=== PATIENT | male | born 1995 | race Caucasian/White ===

== ENCOUNTER 2019-05-08 17:06 | Emergency (ER) | payer SELFPAY | END 2019-05-08 19:50 | disposition left against medical advice (07) | LOC: ER 17:06 | DX: Z53.21 Procedure and treatment not carried out due to patient leaving prior to being seen by health care provider (principal) ==

== ENCOUNTER 2020-07-13 04:00 | Emergency (ER) | payer OTHER ==
[2020-07-13] MEDS ORDERED: LORAZEPAM INJ 2 MG/1 ML VIAL IV ONE (06:27)
[2020-07-13] MEDS ORDERED: MORPHINE SULFATE 10 MG/ML INJ IV ONE ×2 (06:27→08:49)
[2020-07-13] MEDS ORDERED: NORMAL SALINE 1000 ML 1,000 ML IV ONE (06:28)
[2020-07-13] MEDS ORDERED: KETOROLAC TROMETHAMINE INJ/PF 30 MG/1 ML SDV IV ONE (06:28)
--- NOTE | 2020-07-13 08:15 | RADIOLOGY REPORT (SQ) ---
EXAM DESCRIPTION: CT LUMBAR SPINE WITHOUT IMAGES COMPLETED DATE/TIME: 07/13/2020 7:49 am REASON FOR STUDY: heavy lifting yesterday/pain in lowback/pelvis COMPARISON: None. TECHNIQUE: Axial images acquired through the lumbar spine without intravenous contrast. Images revi ewed with lung, soft tissue and bone windows. Reconstructed coronal and sagittal MPR images reviewed . All images stored on PACS. All CT scanners at this facility use dose modulation, iterative reconstruction, and/or weight based d osing when appropriate to reduce radiation dose to as low as reasonably achievable (ALARA). [facility]: Dose Right [facility]: CareDose [facility]: Dose Right [facility]: Teradose 4D [facility]: [address] RADIATION DOSE: mGy. LIMITATIONS: None. FINDINGS: SEGMENTATION: Normal. No transitional anatomy. ALIGNMENT: Normal. VERTEBRAL BODIES: No fractures. No dislocation. No acute findings. DISCS: No significant protrusions. Study limited by lack of intrathecal contrast. PEDICLES, TRANSVERSE PROCESSES: No fractures. No dislocation. No acute findings. FACETS, POSTERIOR ELEMENTS: No fractures. No dislocation. No spinal stenosis. HARDWARE: None in the spine. VISUALIZED RIBS: No fractures. SOFT TISSUES: No significant or acute finding in adjacent soft tissues. OTHER: No other significant finding. IMPRESSION: NORMAL CT OF THE LUMBAR SPINE. TECHNICAL DOCUMENTATION: JOB ID: [id number] Quality ID # [id number]: Final reports with documentation of one or more dose reduction techniques (e.g., Au tomated exposure control, adjustment of the mA and/or kV according to patient size, use of iterative reconstruction technique) 2010 [employer]- All Rights Reserved Reading location - IP/workstation name: [email or web address]
--- NOTE | 2020-07-13 08:19 | RADIOLOGY REPORT (SQ) ---
EXAM DESCRIPTION: CT PELVIS WITHOUT IMAGES COMPLETED DATE/TIME: 07/13/2020 7:48 am REASON FOR STUDY: heavy lifting yesterday/pain in lowback/pelvis COMPARISON: None. TECHNIQUE: CT scan of the pelvis performed without intravenous or oral contrast. Images reviewed wi th soft tissue and bone windows. Reconstructed coronal and sagittal MPR images reviewed. All images stored on PACS. All CT scanners at this facility use dose modulation, iterative reconstruction, and/or weight based d osing when appropriate to reduce radiation dose to as low as reasonably achievable (ALARA). [facility]: Dose Right [facility]: CareDose [facility]: Dose Right [facility]: Teradose 4D [facility]: [place] RADIATION DOSE: CT Rad equipment meets quality standard of care and radiation dose reduction techniq ues were employed. CTDIvol: NaN mGy. DLP: 0 mGy-cm. mGy. LIMITATIONS: None. FINDINGS: PELVIC BONES: No acute fracture. No worrisome bone lesions. VISUALIZED SPINE: No acute findings. HIP(S): No acute fracture or dislocation. No worrisome bone lesions. PELVIC SOFT TISSUES: No significant findings. EXTRAPELVIC SOFT TISSUES: No significant findings. OTHER: No other significant finding. IMPRESSION: NO ACUTE OR SIGNIFICANT FINDINGS. TECHNICAL DOCUMENTATION: JOB ID: [id number] Quality ID # [id number]: Final reports with documentation of one or more dose reduction techniques (e.g., Au tomated exposure control, adjustment of the mA and/or kV according to patient size, use of iterative reconstruction technique) 2010 [employer]- All Rights Reserved Reading location - IP/workstation name: [email or web address]
--- NOTE | 2020-07-13 09:51 | ER Document Report ---
Entered by RAFFY LOZANO SCRIBE 07/13/20 0632 Acting as scribe for:KEANU ALCOCER MD ED Neck/Back Problem - General Chief Complaint: Low Back Pain Stated Complaint: LOWER BACK INJURY Mode of Arrival: Ambulatory Information source: Patient Notes: This 25 year old male patient presents to the ED today with complaints of left lower back pain that started around 1900 yesterday evening at the gym. Patient states that he was doing heavy back squats with 470 lbs of weight and when he went down in the squat position, he hyperextended his back and threw the weight down. Denies fall or trauma. He notes that the pain is exacerbated by any movements and that he can stand, but it hurts to ambulate. He mentions taking 1000 mg Ibuprofen last night without relief. Denies any change in urinary habits. - Related Data Allergies/Adverse Reactions: No Known Allergies Allergy (Verified 05/08/19 17:07) Past Medical History - General Information source: Patient - Social History Smoking Status: Never Smoker Cigarette use (# per day): No Chew tobacco use (# tins/day): No Smoking Education Provided: No Frequency of alcohol use: None Drug Abuse: None Lives with: Spouse/Significant other Family History: Reviewed & Not Pertinent Patient has suicidal ideation: No Patient has homicidal ideation: No Past Surgical History: Reports: Hx Oral Surgery, Hx Orthopedic Surgery - Right wrist Review of Systems - Review of Systems Constitutional: No symptoms reported EENT: No symptoms reported Cardiovascular: No symptoms reported Respiratory: No symptoms reported Gastrointestinal: No symptoms reported Genitourinary: See HPI. denies: Pain Male Genitourinary: No symptoms reported Musculoskeletal: See HPI, Back pain Skin: No symptoms reported Hematologic/Lymphatic: No symptoms reported Neurological/Psychological: No symptoms reported Physical Exam - Vital signs Vitals: Temp Pulse Resp BP Pulse Ox 98.3 F 65 20 128/71 H 100 07/13/20 04:05 07/13/20 04:05 07/13/20 04:05 07/13/20 04:05 07/13/20 04:05 - General General appearance: Appears well, Alert In distress: None - HEENT Head: Normocephalic, Atraumatic Eyes: Normal Pupils: PERRL - Respiratory Respiratory status: No respiratory distress Chest status: Nontender Breath sounds: Normal Chest palpation: Normal - Cardiovascular Rhythm: Regular Heart sounds: Normal auscultation Murmur: No - Abdominal Inspection: Normal Distension: No distension Bowel sounds: Normal Tenderness: Nontender - Abdomen soft Organomegaly: No organomegaly - Extremities General upper extremity: Normal inspection General lower extremity: Normal inspection. No: Tender - Neurological Neuro grossly intact: Yes Orientation: AAOx4 [place] Coma Scale Eye Opening: Spontaneous [place] Coma Scale Verbal: Oriented [place] Coma Scale Motor: Obeys Commands [place] Coma Scale Total: 15 Motor strength normal: LUE, RUE, LLE, RLE Additional motor exam normals: Other - Able to move his toes Sensory: Normal - Psychological Associated symptoms: Normal affect, Normal mood - Skin Skin Temperature: Warm Skin Moisture: Dry Skin Color: Normal Course - Re-evaluation Re-evalutation: 07/13/20 09:39 Patient resting in bed on his back. Patient has received IV pain medication. Patient reports that his pain is better at this time. - Vital Signs Vital signs: Temp Pulse Resp BP Pulse Ox 98.3 F 65 20 128/71 H 100 07/13/20 04:05 07/13/20 04:05 07/13/20 04:05 07/13/20 04:05 07/13/20 04:05 07/13/20 09:42 07/13/20 09:45 Vital signs stable - Diagnostic Test Radiology reviewed: Image reviewed, Reports reviewed Radiology results interpreted by me: 07/13/20 08:[address] 07/13/20 00:00 IMPRESSION: NORMAL CT OF THE LUMBAR SPINE. Pelvis CT 07/13/20 07:28 IMPRESSION: NO ACUTE OR SIGNIFICANT FINDINGS. 07/13/20 09:[address] shows no acute significant findings. Lumbar CT spine shows normal CT scan of the lumbar spine. Discharge - Discharge Clinical Impression: Acute low back pain, Spasm of lumbar paraspinous muscle Condition: Stable Disposition: HOME, SELF-CARE Prescriptions: Cyclobenzaprine HCl [Flexeril 10 mg Tablet] 10 mg PO TIDP PRN #15 tab PRN Reason: Ibuprofen [Motrin 800 mg Tablet] 800 mg PO Q8H PRN #21 tablet PRN Reason: pain Oxycodone HCl/Acetaminophen [Percocet 5-325 mg Tablet] 1 tab PO Q6H PRN 2 Days #8 tab PRN Reason: pain Forms: Return to Work I personally performed the services described in the documentation, reviewed and edited the documentation which was dictated to the scribe in my presence, and it accurately records my words and actions.
[2020-07-13 10:46] VITALS: BP 126/60
== END 2020-07-13 10:40 | disposition home or self-care (01) ==
LOC: ER 04:00
DX: M62.830 Muscle spasm of back (principal); M54.5 Low back pain; X50.0XXA Overexertion from strenuous movement or load, initial encounter; Y93.B9 Activity, other involving muscle strengthening exercises; Y92.39 Other specified sports and athletic area as the place of occurrence of the external cause; R10.2 Pelvic and perineal pain
CPT/HCPCS: 99285; 96374; 72131; 72192; J1885; J2270; J2060; J7030